=== PATIENT | male | born 1970 | race Caucasian/White ===

== ENCOUNTER 2024-02-15 10:19 | Outpatient (OUT) | payer OTHER, SELFPAY ==
[2024-02-15 12:06] LABS: Chol HDL Ratio 4.8; Cholesterol 163 mg/dL (<=200); HDL Cholesterol 34 mg/dL (40-60); Triglycerides 255 mg/dL (<=150)
== END 2024-02-15 10:20 | disposition home or self-care (01) ==
PROVIDERS: PCP Internal Medicine; Visit Provider Internal Medicine
DX: E78.3 Hyperchylomicronemia (principal)
CPT/HCPCS: 36415; 80061

== ENCOUNTER 2024-05-09 09:22 | Outpatient (OUT) | payer OTHER, SELFPAY ==
--- NOTE | 2024-05-09 09:34 | CA_ITS ---
Patient Name: ELISHA GIFFORD MR#: [id number] : 1970 Exam Date: 05/09/2024 Ordering Doctor: DR LADONNA HURTADO ECHOCARDIOGRAM REPORT PROCEDURE: CA ECHO DOPPLER COMPLETE INDICATIONS: [place] COMPARISON: None. DESCRIPTION: COMPLETE ECHOCARDIOGRAM Real-time transthoracic echocardiography with 2D, M-mode, spectral and color flow Doppler performed. QUALITY: Technical quality was good. LEFT VENTRICLE: Normal chamber size. Mild concentric hypertrophy. Global left ventricular systolic function is normal. LV EF: Estimated left ventricular ejection fraction is 55-60%. DIASTOLIC: Normal diastolic function. ATRIAL SEPTUM: LEFT ATRIUM: Normal chamber size. RIGHT ATRIUM: Normal chamber size. RIGHT VENTRICLE: Normal chamber size. Normal right ventricular systolic function. TRICUSPID VALVE: Normal mobility and thickness. No stenosis with trivial regurgitation. No evidence of pulmonary hypertension. RVSP 29 mmHg MITRAL VALVE: Normal mobility and thickness. No evidence of mitral valve stenosis. There is no mitral annular calcification. Trivial mitral regurgitation. AORTIC VALVE: Normal trileaflet appearance. No visible sclerosis. Normal leaflet mobility. No evidence of aortic valve stenosis. No aortic regurgitation. AORTIC ROOT: Normal diameter and appearance, measuring 3.3 cm. The ascending aorta is normal in size measuring 2.8 cm. PULMONIC VALVE: Normal thickness and mobility. No stenosis. Trivial regurgitation. PERICARDIUM: No evidence of pericardial effusion. IVC: Collapses with inspirations. Normal size. PLEURA: CONCLUSION: 1. Mild concentric left ventricular hypertrophy with normal systolic function. Estimated LVEF is 55 to 60%. 2. Normal right ventricular size and systolic function. 3. Normal diastolic function. 4. No significant valvular dysfunction. 5. Normal right-sided pressures. Adult Echocardiography Procedure Report Left Ventricle LVEDD (3.7 - 5.6 cm): 4.10 cm LVESD (2.2 - 4.0 cm): 2.67 cm LVIVS thickness (0.6 - 1.2 cm): 1.42 cm LVPW thickness (0.5 - 1.0 cm): 1.15 cm e': 0.13 m/s E - e': 6.33 LVOT Max Gradient: 6.03 mm[Hg] LVOT Area (cm2): 1.23 m/s Peak Velocity (LVOT): 1.23 m/s Mean Velocity (LVOT): 0.89 m/s LVOT Diameter 2.06 cm Left Ventricular Ejection Fraction: 55-60 % Left Atrium LA Volume Index (2D A2C): 25.65 ml/m2 Left Atrium Systolic Dimension: 4.22 cm Mitral Valve MV E to A Ratio: 1.04, 0.96 Mitral Valve A-Wave Peak Velocity: 0.81 m/s Mitral Valve E-Wave Peak Velocity: 0.81 m/s Right Ventricle RV Internal Diastolic Dimension: 3.38 cm Aorta AO Root Diam: 3.29 cm Ascending Ao Diam: 2.76 cm Aortic Valve AoV Area (Peak Primo): 2.53 cm2, 2.43 cm2 AoV Area (VTI): 2.44 cm2, 2.40 cm2 Peak Velocity(Antegrade Flow): 1.68 m/s, 1.54 m/s Peak Gradient(Antegrade Flow): 11.32 mm[Hg], 9.55 mm[Hg] Mean Velocity(Antegrade Flow): 1.09 m/s, 1.03 m/s Mean Gradient(Antegrade Flow): 5.54 mm[Hg], 4.90 mm[Hg] Velocity Time Integral: 33.12 cm, 32.13 cm Tricuspid Valve Peak Velocity (Regurgitant Flow): 2.43 m/s, 2.54 m/s, 2.40 m/s Pulmonic Valve Mean Gradient: 3.26 mm[Hg], 2.95 mm[Hg] Mean Velocity: 0.83 m/s, 0.80 m/s Peak Velocity: 1.27 m/s, 1.16 m/s Peak Gradient: 5.39 mm[Hg], 7.16 mm[Hg], 5.69 mm[Hg] Right Atrium Right Atrium Systolic Pressure: 43.39 ml, 43.39 ml Dictated by: Maxim Gabriel M.D. on 05/09/2024 at 17:39 Approved by: Maxim Gabriel M.D. on 05/09/2024 at 17:41
--- OUTSIDE RECORDS SUMMARY | 2024-05-09 09:38 | XMS_ITS | CCD ---
Author Organization [place] [employer] [facility] Care Team Providers Care Business Development Representative Name Role Phone PETERSON CROOK Attending Unavailable PETERSON CROOK Consulting PETERSON Nelson Primary Care Unavailable PETERSON CROOK Admitting Unavailable DON NOLAND V Consulting Unavailable LADONNA PEDRO Attending Unavailable LADONNA PEDRO Admitting Unavailable Don Momin Unavailable LADONNA PEDRO Consulting Unavailable Peterson Crook MD Primary Care Provider [phone] PETERSON CROOK Attending Unavailable PETERSON CROOK Attending Unavailable LADONNA PEDRO Attending Unavailable LADONNA PEDRO Attending Unavailable Allergies Allergy Classification Reported Allergen(s) Allergy Type Date of Onset Reaction(s) Facility (1 source) Penicillin Drug Allergy [facility] Repository (1 source) Vancomycin Drug Allergy [facility] Repository (3 sources) Lisinopril Allergy to substance 09-10-2023 Cough [facility] Healthcare (3 sources) Penicillin G Drug Allergy 09-10-2023 Unknown [facility] Healthcare (3 sources) Vancomycin Drug Allergy 09-10-2023 Unknown [facility] Healthcare Medications Current Medications Medication Drug Class(es) Dates Sig (Normalized) Sig (Original) amLODIPine 10 mg / olmesartan medoxomil 40 mg oral tablet (3 sources) Dihydropyridine Calcium Channel Itz, Angiotensin 2 Receptor Itz Start: 3 take 1 tablet by mouth in the morning amLODIPine-olmesart an (Marily) 10-40 MG tablet Indications: Benign essential hypertension (CMS/HCC) Take 1 tablet by mouth in the morning. 90 tablet 3 04/08/2023 Active 24 hr buPROPion hydrochloride 300 mg extended release oral tablet (3 sources) Aminoketone Start: 3 take 1 tablet by mouth every twenty-four hours in the morning buPROPion XL (Wellbutrin XL) 300 MG 24 hr tablet Indications: Moderate major depression (CMS/HCC) Take 1 tablet (300 mg) by mouth in the morning. 90 tablet 2 04/08/2023 Active FLUoxetine 10 mg oral capsule (3 sources) Serotonin Reuptake Inhibitor Start: 3 take 1 capsule by mouth in the morning FLUoxetine (PROzac) 10 MG capsule Indications: Moderate major depression (CMS/HCC) Take 1 capsule (10 mg) by mouth in the morning. 90 capsule 3 04/08/2023 Active ibuprofen 800 mg oral tablet (3 sources) Nonsteroidal Anti-inflammatory Drug Start: 4 take 1 tablet by mouth three times daily as needed for pain ibuprofen 800 MG tablet Indications: Cervical spondylosis without myelopathy TAKE 1 TABLET BY MOUTH 3 TIMES A DAY NEEDED FOR MODERATE PAIN 90 tablet 3 08/10/2023 Active Syringe/Needle, Disp, (B-D 3CC LUER-CARMEN SYR 22GX1 ) 22G X 1 3 ML misc (3 sources) Start: 3 Syringe/Needle, Disp, (B-D 3CC LUER-CARMEN SYR 22GX1 ) 22G X 1 3 ML misc Indications: Testicular hypofunction Inject subcutaneous every 14 days. 2 each 5 04/08/2023 Active tadalafil 5 mg oral tablet (2 sources) Phosphodiesterase 5 Inhibitor Start: 4 End: 4 take 1 tablet by mouth in the morning tadalafil (Cialis) 5 MG tablet Indications: Benign prostatic hyperplasia with nocturia Take 1 tablet (5 mg) by mouth in the morning. 10 tablet 0 09/14/2023 10/14/2023 Active 1 ml testosterone cypionate 200 mg/ml injection (3 sources) Androgen Start: 3 inject 0.5 mL by intramuscular injection every other week testosterone cypionate (Depo-Testosterone) 200 MG/ML injection Indications: Testicular hypofunction INJECT 1/2 ML INTRAMUSCULARLY EVERY 2 WEEKS 1 mL 2 06/15/2023 Active Problems Problem Classification Problem Date Documented Date Episodic/Chronic Abdominal pain (4 sources) Right upper quadrant pain; Translations: [RIGHT UPPER QUADRANT PAIN] Onset: 06-04-2020 Episodic Diabetes mellitus without complication (5 sources) Impaired glucose tolerance; Translations: [Impaired glucose tolerance (oral)] Onset: 09-10-2023 09-10-2023 Episodic Disorders of lipid metabolism (5 sources) Hypertriglyceridemia; 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] Onset: 09-10-2023 09-10-2023 Chronic Esophageal disorders (5 sources) Gastroesophageal reflux disease; Translations: [Gastro-esophageal reflux disease without esophagitis] Onset: 09-10-2023 09-10-2023 Chronic Essential hypertension (5 sources) Benign essential hypertension; Translations: [Essential (primary) hypertension] Onset: 09-10-2023 09-10-2023 Chronic Gout and other crystal arthropathies (5 sources) Gout; Translations: [Gout, unspecified] Onset: 09-10-2023 09-10-2023 Chronic Hyperplasia of prostate (5 sources) Benign prostatic hypertrophy without outflow obstruction; Translations: [Benign prostatic hyperplasia without lower urinary tract symptoms] Onset: 09-10-2023 09-10-2023 Chronic Mood disorders (3 sources) Moderate major depression, single episode; Translations: [Major depressive disorder, single episode, moderate] Onset: 09-10-2023 09-10-2023 Chronic Other and unspecified benign neoplasm (3 sources) Benign neoplasm of colon; Translations: [Benign neoplasm of colon, unspecified] Onset: 09-10-2023 09-10-2023 Episodic Other endocrine disorders (5 sources) Testicular hypofunction; Translations: [Testicular hypofunction] Onset: 09-10-2023 09-10-2023 Chronic Other liver diseases (5 sources) Steatosis of liver; Translations: [Fatty (change of) liver, not elsewhere classified] Onset: 09-10-2023 09-10-2023 Chronic Other screening for suspected conditions (not mental disorders or infectious disease) (10 sources) Abnormal findings on diagnostic imaging of liver and biliary tract; Translations: [Decreased testosterone level ] Onset: 06-08-2020 09-10-2023 Episodic Spondylosis; intervertebral disc disorders; other back problems (5 sources) Cervical spondylosis without myelopathy; Translations: [Spondylosis without myelopathy or radiculopathy, cervical region] Onset: 09-10-2023 09-10-2023 Chronic Results Test Name Value Interpretation Reference Range Facility Q - CBC W/DIFF AND PLTon BASOABS 53 cells/uL Normal 0-200 [facility] Specialist Comment on above: Order Comment: [facility] performed at: [facility] [employer] [facility], [address] [facility], [address] [place] [address], [address] [place] [address], Research Professor Of Biostatistics: Mihir Alvarez MD [facility] Collection Date/Time: [facility] Results Received Date/Time: [facility] Reported Date/Time: Performed By: #### 3 6127, 5363X, 873, 81396W, 42A, 39910B, 968T #### [facility] Default [address] [place] [address] Basophils/100 WBC (Bld) 0.8 % Normal [facility] Specialist Comment on above: Order Comment: [facility] performed at: [facility] [employer] [facility], [address] [place] [address], [address] [place] [address], [address] [place] [address], Research Professor Of Biostatistics: Mihir Alvarez MD [facility] Date/Time: [facility] Results Received Date/Time: [facility] Reported Date/Time: Performed By: #### 3 6127, 5363X, 873, 17203F, 42A, 00994Z, 968T #### [facility] [address] [place] [address] EOSABS 284 cells/uL Normal 15-500 [facility] Specialist Comment on above: Order Comment: [facility] performed at: [facility] [employer] [facility], [address] [facility], [address] [place] [address], [address] [place] [address], Research Professor Of Biostatistics: Mihir Alvarez MD [facility] Date/Time: [facility] Results Received Date/Time: [facility] Reported Date/Time: Performed By: #### 3 6127, 5363X, 873, 49952O, 42A, 62717K, 968T #### [facility] [address] [place] [address] Eosinophils/100 WBC (Bld) 4.3 % Normal [facility] Specialist Comment on above: Order Comment: [facility] performed at: [facility], [employer] [facility], [address] [place] [address], [address] [place] [address], [address] [place] [address], Research Professor Of Biostatistics: Mihir Alvarez MD [facility] Date/Time: [facility] Results Received Date/Time: [facility] Reported Date/Time: Performed By: #### 3 6127, 5363X, 873, 21429P, 42A, 46011E, 968T #### [facility] [address] [place] [address] Erythrocyte distribution width (RBC) [Ratio] 13.3 % Normal 11.0-15.0 [facility] [employer] Comment on above: Order Comment: [facility] performed at: [facility], [employer] [facility], [address] [place] [address], [address] [place] [address], [address] [place] [address], Research Professor Of Biostatistics: Mihir Alvarez MD [facility] Date/Time: [facility] Results Received Date/Time: [facility] Reported Date/Time: Performed By: #### 3 6127, 5363X, 873, 39096W, 42A, 67602E, 968T #### [facility] [address] [place] [address] Hematocrit (Bld) [Volume fraction] 44.7 % Normal 38.5-50.0 [facility] [employer] Comment on above: Order Comment: [facility] performed at: [facility], [employer] [facility], [address] [place] [address], [address] [place] [address], [address] [place] [address], Research Professor Of Biostatistics: Mihir Alvarez MD [facility] Date/Time: [facility] Results Received Date/Time: [facility] Reported Date/Time: Performed By: #### 3 6127, 5363X, 873, 01238U, 42A, 34025G, 968T #### [facility] [address] [place] [address] Hemoglobin (Bld) [Mass/Vol] 14.8 g/dL Normal 13.2-17.1 [facility] [employer] Comment on above: Order Comment: [facility] performed at: [facility] [employer] [facility], 5 [facility], [address] [place] [address], [address] [place] [address], Research Professor Of Biostatistics: Mihir Alvarez MD [facility] Date/Time: [facility] Results Received Date/Time: [facility] Reported Date/Time: Performed By: #### 3 6127, 5363X, 873, 56809F, 42A, 33074N, 968T #### [facility] [address] [place] [address] Lymphocytes (Bld) [#/Vol] 1.729 10*3/uL Normal 850-3900 [facility] [employer] Comment on above: Order Comment: [facility] performed at: [facility] [employer] [facility], [address] [place] [address], [address] [place] [address], [address] [place] [address], Research Professor Of Biostatistics: Mihir Alvarez MD [facility] Date/Time: [facility] Results Received Date/Time: [facility] Reported Date/Time: Performed By: #### 3 6127, 5363X, 873, 78503D, 42A, 73557O, 968T #### [facility] [address] [place] [address] Lymphocytes/100 WBC (Bld) 26.2 % Normal [facility] [employer] Comment on above: Order Comment: [facility] performed at: [employer] [facility], 5 [facility], [address] [place] [address], [address] [place] [address], Research Professor Of Biostatistics: Mihir Alvarez MD [facility] Date/Time: [facility] Results Received Date/Time: [facility] Reported Date/Time: Performed By: #### 3 6127, 5363X, 873, 88793O, 42A, 31194P, 968T #### [facility] [address] [place] [address] MCH (RBC) [Entitic mass] 27.8 pg Normal 27.0-33.0 [facility] [employer] Comment on above: Order Comment: [facility] performed at: [facility], [employer] [facility], [address] [facility], [address] [place] [address], [address] [place] [address], Research Professor Of Biostatistics: Mihir Alvarez MD [facility] Date/Time: [facility] Results Received Date/Time: [facility] Reported Date/Time: Performed By: #### 3 6127, 5363X, 873, 99445K, 42A, 64465N, 968T #### [facility] [address] [place] [address] MCHC (RBC) [Mass/Vol] 33.1 g/dL Normal 32.0-36.0 [facility] [employer] Comment on above: Order Comment: [facility] performed at: [facility], [employer] [facility], [address] [place] [address], [address] [place] [address], [address] [place] [address], Research Professor Of Biostatistics: Mihir Alvarez MD [facility] Date/Time: [facility] Results Received Date/Time: [facility] Reported Date/Time: Performed By: #### 3 6127, 5363X, 873, 00802E, 42A, 88795H, 968T #### [facility] [address] [place] [address] MCV (RBC) [Entitic vol] 83.9 fL Normal 80.0-100.0 [facility] [employer] Comment on above: Order Comment: [facility] performed at: [facility], [employer] [facility], 5 [facility], [address] [place] [address], [id number], Research Professor Of Biostatistics: Mihir Alvarez MD [facility] Date/Time: [facility] Results Received Date/Time: [facility] Reported Date/Time: Performed By: #### 3 6127, 5363X, 873, 32002S, 42A, 53671I, 968T #### [facility] [address] [place] [address] MONOABS 653 cells/uL Normal 200-950 [facility] Specialist Comment on above: Order Comment: [facility] performed at: [facility], [employer] [facility], [address] , [address] [place] [address], [address] [place] [address], Research Professor Of Biostatistics: Mihir Alvarez MD [facility] Date/Time: [facility] Results Received Date/Time: [facility] Reported Date/Time: Performed By: #### 3 6127, 5363X, 873, 23297Y, 42A, 60066K, 968T #### [facility] [address] [place] [address] Monocytes/100 WBC (Bld) 9.9 % Normal [facility] Specialist Comment on above: Order Comment: [facility] performed at: [facility] [employer] [facility], [address] [facility], [address] [place] [address], [address] [place] [address], Research Professor Of Biostatistics: Mihir Alvarez MD [facility] Date/Time: [facility] Results Received Date/Time: [facility] Reported Date/Time: Performed By: #### 3 6127, 5363X, 873, 20012U, 42A, 11567T, 968T #### [facility] [address] [place] [address] Neutrophils (Bld) [#/Vol] 3.881 10*3/uL Normal 4724-6983 [facility] Specialist Comment on above: Order Comment: [facility] performed at: [facility] [employer] [facility], [address] , [address] [place] [address], [address] [place] [address], Research Professor Of Biostatistics: Mihir Alvarez MD [facility] Date/Time: [facility] Results Received Date/Time: [facility] Reported Date/Time: Performed By: #### 3 6127, 5363X, 873, 24284V, 42A, 97543C, 968T #### [facility] [address] [place] [address] Neutrophils/100 WBC (Bld) 58.8 % Normal [facility] Specialist Comment on above: Order Comment: [facility] performed at: [facility] [employer] [facility], [address] , [address] [place] [address], [address] [place] [address], Research Professor Of Biostatistics: Mihir Alvarez MD [facility] Collection Date/Time: [facility] Results Received Date/Time: [facility] Reported Date/Time: Performed By: #### 3 6127, 5363X, 873, 76346Y, 42A, 10431K, 968T #### [facility] [address] [place] [address] Platelet mean volume (Bld) [Entitic vol] 9.5 fL Normal 7.5-12.5 [facility] [employer] Comment on above: Order Comment: [facility] performed at: [facility] [employer] [facility], [address] , [address] [place] [address], [address] [place] [address], Research Professor Of Biostatistics: Mihir Alvarez MD [facility] Collection Date/Time: [facility] Results Received Date/Time: [facility] Reported Date/Time: Performed By: #### 3 6127, 5363X, 873, 03602G, 42A, 45558T, 968T #### [facility] [address] [place] [address] Platelets (Bld) [#/Vol] 352 10*3/uL Normal 140-400 [facility] [employer] Sep[employer] Comment on above: Order Comment: [facility] performed at: [facility], [employer] [facility], [address] , [address] [place] [address], [address] [place] [address], Research Professor Of Biostatistics: Mihir Alvarez MD [facility] Collection Date/Time: [facility] Results Received Date/Time: [facility] Reported Date/Time: Performed By: #### 3 6127, 5363X, 873, 56678A, 42A, 37899G, 968T #### [facility] [address] [place] [address] RBC (Bld) [#/Vol] 5.33 10*6/uL Normal 4.20-5.80 Nickolas rosen [place] [employer] Comment on above: Order Comment: [facility] performed at: [facility], [employer] [facility], [address] [facility], [address] [place] [address], [address] [place] [address], Research Professor Of Biostatistics: Mihir Alvarez MD [facility] Collection Date/Time: [facility] Results Received Date/Time: [facility] Reported Date/Time: Performed By: #### 3 6127, 5363X, 873, 34560O, 42A, 80191E, 968T #### [facility] [address] [place] [address] WBC (Bld) [#/Vol] 6.6 10*3/uL Normal 3.8-10.8 Gia wick [place] [employer] Comment on above: Order Comment: [facility] performed at: [facility] [employer] [facility], [address] , [address] [place] [address], [address] [place] [address], Research Professor Of Biostatistics: Mihir Alvarez MD [facility] Date/Time: [facility] Results Received Date/Time: [facility] Reported Date/Time: Performed By: #### 3 6127, 5363X, 873, 15898K, 42A, 30818G, 968T #### [facility] [address] [place] [address] Q - COMPREHENSIVE METABOLIC PANEL W/EGFRon 07-12-2021 Albumin [Mass/Vol] 4.5 g/dL Normal 3.6-5.1 Gia wick [place] [employer] Comment on above: Order Comment: [facility] performed at: [facility] [employer] [facility], [address] [facility], [address] [place] [address], [address] [place] [address], Research Professor Of Biostatistics: Mihir Alvarez MD [facility] Collection Date/Time: [facility] Results Received Date/Time: [facility] Reported Date/Time: Performed By: #### 3 6127, 5363X, 873, 09655J, 42A, 29115L, 968T #### [facility] [address] [place] [address] Albumin/Globulin [Mass ratio] 1.7 {ratio} Normal 1.0-2.5 [facility] Specialist Comment on above: Order Comment: [facility] performed at: [facility] [employer] [facility], [address] [place] [address], [address] [place] [address], [address] [place] [address], Research Professor Of Biostatistics: Mihir Alvarez MD [facility] Collection Date/Time: [facility] Results Received Date/Time: [facility] Reported Date/Time: Performed By: #### 3 6127, 5363X, 873, 76548R, 42A, 36219J, 968T #### [facility] [address] [place] [address] ALP [Catalytic activity/Vol] 65 U/L Normal 35-144 [facility] Specialist Comment on above: Order Comment: [facility] performed at: [facility] [employer] [facility], [address] [place] [address], [address] [place] [address], [address] [place] [address], Research Professor Of Biostatistics: Mihir Alvarez MD [facility] Date/Time: [facility] Results Received Date/Time: [facility] Reported Date/Time: Performed By: #### 3 6127, 5363X, 873, 87993V, 42A, 50495Z, 968T #### [facility] [address] [place] [address] ALT [Catalytic activity/Vol] 20 U/L Normal 9-46 [facility] Specialist Comment on above: Order Comment: [facility] performed at: [facility] [employer] [facility], [address] [place] [address], [address] [place] [address], [address] [place] [address], Research Professor Of Biostatistics: Mihir Alvarez MD [facility] Collection Date/Time: [facility] Results Received Date/Time: [facility] Reported Date/Time: Performed By: #### 3 6127, 5363X, 873, 61939O, 42A, 37646R, 968T #### [facility] [address] [place] [address] AST [Catalytic activity/Vol] 16 U/L Normal 10-35 [facility] Comment on above: Order Comment: [facility] performed at: [facility] [employer] [facility], [address], [address] [place] [address], [address] [place] [address], Research Professor Of Biostatistics: Mihir Alvarez MD [facility] Collection Date/Time: [facility] Results Received Date/Time: [facility] Reported Date/Time: Performed By: #### 3 6127, 5363X, 873, 86149J, 42A, 36587T, 968T #### [facility] [address] [place] [address] Bilirubin [Mass/Vol] 0.7 mg/dL Normal 0.2-1.2 [facility] Comment on above: Order Comment: [facility] performed at: [facility] [employer] [facility], [address] [facility], [address] [place] [address], [address] [place] [address], Research Professor Of Biostatistics: Mihir Alvarez MD [facility] Collection Date/Time: [facility] Results Received Date/Time: [facility] Reported Date/Time: Performed By: #### 3 6127, 5363X, 873, 77200T, 42A, 48695Q, 968T #### [facility] [address] [place] [address] BUN/CREA 18 NOT APPLICABLE Normal 6-22 [facility] Comment on above: Order Comment: [facility] performed at: [facility], [employer] [facility], [address] , [address] [place] [address], [address] [place] [address], Research Professor Of Biostatistics: Mihir Alvarez MD [facility] Collection Date/Time: [facility] Results Received Date/Time: [facility] Reported Date/Time: Performed By: #### 3 6127, 5363X, 873, 20018U, 42A, 47728E, 968T #### [facility] [address] [place] [address] Calcium [Mass/Vol] 9.1 mg/dL Normal 8.6-10.3 [facility] Comment on above: Order Comment: [facility] performed at: [facility], [employer] [facility], [address] [facility], [address] [place] [address], [address] [place] [address], Research Professor Of Biostatistics: Mihir Alvarez MD [facility] Date/Time: [facility] Results Received Date/Time: [facility] Reported Date/Time: Performed By: #### 3 6127, 5363X, 873, 45979D, 42A, 07524S, 968T #### [facility] [address] [place] [address] Chloride [Moles/Vol] 104 mmol/L Normal 98-110 [facility] Comment on above: Order Comment: [facility] performed at: [facility] [employer] [facility], [address] [place] [address], [address] [place] [address], [address] [place] [address], Research Professor Of Biostatistics: Mihir Alvarez MD [facility] Date/Time: [facility] Results Received Date/Time: [facility] Reported Date/Time: Performed By: #### 3 6127, 5363X, 873, 98417N, 42A, 03138O, 968T #### [facility] [address] [place] [address] CO2 [Moles/Vol] 28 mmol/L Normal 20-32 [facility] Specialist Comment on above: Order Comment: [facility] Testing performed at: [facility] [employer] [facility], [address] , [address] [place] [address], [address] [place] [address], Research Professor Of Biostatistics: Mihir Alvarez MD [facility] Collection Date/Time: [facility] Results Received Date/Time: [facility] Reported Date/Time: Performed By: #### 3 6127, 5363X, 873, 67392U, 42A, 42319P, 968T #### [facility] [address] [place] [address] Creatinine [Mass/Vol] 1.07 mg/dL Normal 0.70-1.33 [facility] [employer]ator Comment on above: Order Comment: [facility] Testing performed at: [employer] [employer] [facility], [address] [place] [address], [address] [place] [address], [address] [place] [address], Research Professor Of Biostatistics: Mihir Alvarez MD [facility] Collection Date/Time: [facility] Results Received Date/Time: [facility] Reported Date/Time: Result Comment: For patients >49 years of age, the reference limit for Creatinine is approximately 13% higher for people identified as -Trinidadian. Performed By: #### 3 6127, 5363X, 873, 19222Q, 42A, 52866N, 968T #### [facility] [address] [place] [address] eGFRAA 88 mL/min/1.73m2 Normal > OR = 60 [facility] [employer] Comment on above: Order Comment: [facility] Testing performed at: [facility] [employer] [facility], [address] [place] [address], [address] [place] [address], [address] [place] [address], Research Professor Of Biostatistics: Mihir Alvarez MD [facility] Collection Date/Time: [facility] Results Received Date/Time: [facility] Reported Date/Time: Performed By: #### 3 6127, 5363X, 873, 08353N, 42A, 34440Z, 968T #### [facility] [address] [place] [address] eGFRNAA 73 mL/min/1.73m2 Normal > OR = 60 [facility] [employer] Comment on above: Order Comment: [facility] performed at: [facility] [employer] [facility], [address] [place] [address], [address] [place] [address], [address] [place] [address], Research Professor Of Biostatistics: Mihir Alvarez MD [facility] Collection Date/Time: [facility] Results Received Date/Time: [facility] Reported Date/Time: Performed By: #### 3 6127, 5363X, 873, 33186Y, 42A, 10469X, 968T #### [facility] [address] [place] [address] Globulin (S) [Mass/Vol] 2.6 g/dL Normal 1.9-3.7 [facility] Specialist Comment on above: Order Comment: [facility] Testing performed at: [employer] [facility], [address] [place] [address], [address] [place] [address], [phone], Research Professor Of Biostatistics: Mihir Alvarez MD [facility] Collection Date/Time: [facility] Results Received Date/Time: [facility] Reported Date/Time: Performed By: #### 3 6127, 5363X, 873, 91292P, 42A, 60644B, 968T #### [facility] [address] [place] [address] Glucose [Mass/Vol] 115 mg/dL High 65-99 [facility] Comment on above: Order Comment: [facility] performed at: [employer] [facility], [address] [place] [address], [address] [place] [address], [phone], Research Professor Of Biostatistics: Mihir Alvarez MD [facility] Collection Date/Time: [facility] Results Received Date/Time: [facility] Reported Date/Time: Result Comment: Fasting reference interval For someone without known diabetes, a glucose value between 100 and 125 mg/dL is consistent with prediabetes and should be confirmed with a follow-up test. Performed By: #### 3 6127, 5363X, 873, 50186G, 42A, 34362Q, 968T #### [facility] [address] [place] [address] Potassium [Moles/Vol] 4.2 mmol/L Normal 3.5-5.3 [facility] [employer] Comment on above: Order Comment: [facility] Testing performed at: [employer] [facility], [address] [facility], [address] [place] [address], [address] [place] [address], Research Professor Of Biostatistics: Mihir Alvarez MD [facility] Collection Date/Time: [facility] Results Received Date/Time: [facility] Reported Date/Time: Performed By: #### 3 6127, 5363X, 873, 90006M, 42A, 78207Q, 968T #### [facility] [address] [place] [address] Protein [Mass/Vol] 7.1 g/dL Normal 6.1-8.1 [facility] [place] [employer] Comment on above: Order Comment: [facility] Testing performed at: [employer] [facility], [address] [place] [address], [address] [place] [address], [address] [place] [address], Research Professor Of Biostatistics: Mihir Alvarez MD [facility] Collection Date/Time: [facility] Results Received Date/Time: [facility] Reported Date/Time: Performed By: #### 3 6127, 5363X, 873, 97116P, 42A, 97409L, 968T #### [facility] [address] [place] [address] Sodium [Moles/Vol] 138 mmol/L Normal 135-146 Gia w[facility] [place] [employer] Comment on above: Order Comment: [facility] performed at: [employer] [facility], [address] [place] [address], [address] [place] [address], [address] [place] [address], Research Professor Of Biostatistics: Mihir Alvarez MD [facility] Collection Date/Time: [facility] Results Received Date/Time: [facility] Reported Date/Time: Performed By: #### 3 6127, 5363X, 873, 32160H, 42A, 23807X, 968T #### [facility] [address] [place] [address] Urea nitrogen [Mass/Vol] 19 mg/dL Normal 7-25 [facility] [employer] Comment on above: Order Comment: [facility] performed at: [employer] [employer] [facility], [address] , [address] [place] [address], [address] [place] [address], Research Professor Of Biostatistics: Mihir Alvarez MD [facility] Collection Date/Time: [facility] Results Received Date/Time: [facility] Reported Date/Time: Performed By: #### 3 6127, 5363X, 873, 72675D, 42A, 28282X, 968T #### [facility] [address] [place] [address] Q - HEMOGLOBIN A1C WITH EAGo n 07-12-2021 eAG (mmol/L) 6.8 mmol/L Normal [facility] [employer] Comment on above: Order Comment: [facility] Testing performed at: [employer] [employer] [facility], [address] [facility], [address] [place] [address], [address] [place] [address], Research Professor Of Biostatistics: Mihir Alvarez MD [facility] Collection Date/Time: [facility] Results Received Date/Time: [facility] Reported Date/Time: Performed By: #### 3 6127, 5363X, 873, 23460Z, 42A, 00036Y, 968T #### [facility] [address] [place] [address] HEMOGLOBIN A1c 5.9 % of total Hgb High <5.7 No rthern [place] [employer]ator Comment on above: Order Comment: [facility] performed at: [employer] [employer] [facility], [address] [facility], [address] [place] [address], [address] [place] [address], Research Professor Of Biostatistics: Mihir Alvarez MD [facility] Collection Date/Time: [facility] Results Received Date/Time: [facility] Reported Date/Time: Result Comment: For someone without known diabetes, a hemoglobin A1c value between 5.7% and 6.4% is consistent with prediabetes and should be confirmed with a follow-up test. For someone with known diabetes, a value <7% indicates that their diabetes is well controlled. A1c targets should be individualized based on duration of diabetes, age, comorbid conditions, and other considerations. This assay result is consistent with an increased risk of diabetes. Currently, no consensus exists regarding use of hemoglobin A1c for diagnosis of diabetes for children. Performed By: #### 3 6127, 5363X, 873, 29704Z, 42A, 30801B, 968T #### [facility] [address] [place] [address] Magnesium [Mass/Vol] 123 mg/dL Normal [facility] Comment on above: Order Comment: [facility] Testing performed at: [employer] [facility], [address] [place] [address], [address] [place] [address], [address] [place] [address], Research Professor Of Biostatistics: Mihir Alvarez MD [facility] Collection Date/Time: [facility] Results Received Date/Time: [facility] Reported Date/Time: Performed By: #### 3 6127, 5363X, 873, 93515P, 42A, 03179G, 968T #### [facility] [address] [place] [address] Q - Lipid Panelon 07-12-2021 Cholesterol [Mass/Vol] 199 mg/dL Normal <200 [facility] Specialist Comment on above: Order Comment: [facility] Testing performed at: [employer] [employer] [facility], [address] [place] [address], [address] [place] [address], [address] [place] [address], Research Professor Of Biostatistics: Mihir Alvarez MD [facility] Collection Date/Time: [facility] Results Received Date/Time: [facility] Reported Date/Time: Performed By: #### 3 6127, 5363X, 873, 39064K, 42A, 48316S, 968T #### [facility] [address] [place] [address] Cholesterol in HDL [Mass/Vol] 44 mg/dL Normal > OR = 40 [facility] [employer] Comment on above: Order Comment: [facility] Testing performed at: [employer] [employer] [facility], [address] [place] [address], [address] [place] [address], [address] [place] [address], Research Professor Of Biostatistics: Mihir Alvarez MD [facility] Collection Date/Time: [facility] Results Received Date/Time: [facility] Reported Date/Time: Performed By: #### 3 6127, 5363X, 873, 43466Q, 42A, 42259R, 968T #### [facility] [address] [place] [address] Cholesterol in LDL [Mass/Vol] 125 mg/dL High [place] [employer]ator Comment on above: Order Comment: [facility] Testing performed at: [employer] [facility], [address] [place] [address], [address] [place] [address], [phone], Research Professor Of Biostatistics: Mihir Alvarez MD [facility] Collection Date/Time: [facility] Results Received Date/Time: [facility] Reported Date/Time: Result Comment: Refe rence range: <100 Desirable range <100 mg/dL for primary prevention; <70 mg/dL for patients with CHD or diabetic patients with > or = 2 CHD risk factors. LDL-C is now calculated using the Vinay-Chuck calculation, which is a validated novel method providing better accuracy than the Friedewald equation in the estimation of LDL-C. Vinay SS et al. SHERYL. 2013;310(19): 7924-1887 (http://education.zeenworld.Zopa/faq/CQO927) Performed By: #### 3 6127, 5363X, 873, 79266T, 42A, 76712C, 968T #### [facility] [address] [place] [address] Cholesterol.total/Ch olesterol in HDL [Mass ratio] 4.5 {ratio} Normal <5.0 [facility] [employer]ator Comment on above: Order Comment: [facility] Testing performed at: [employer] [employer] [facility], [address] [facility], [address] [place] [address], [phone], Research Professor Of Biostatistics: Mihir Alvarez MD [facility] Collection Date/Time: [facility] Results Received Date/Time: [facility] Reported Date/Time: Performed By: #### 3 6127, 5363X, 873, 85079R, 42A, 19546V, 968T #### [facility] [address] [place] [address] NON HDL CHOLESTEROL 155 mg/dL (calc) High <130 [facility] [employer]ator Comment on above: Order Comment: [facility] Testing performed at: [employer] [facility], [address] , [address] [place] [address], [address], Research Professor Of Biostatistics: Mihir Alvarez MD [facility] Collection Date/Time: [facility] Results Received Date/Time: [facility] Reported Date/Time: Result Comment: For patients with diabetes plus 1 major ASCVD risk factor, treating to a non-HDL-C goal of <100 mg/dL (LDL-C of <70 mg/dL) is considered a therapeutic option. Performed By: #### 3 6127, 5363X, 873, 78604Z, 42A, 08444U, 968T #### [facility] [address] [place] [address] Triglyceride [Mass/Vol] 182 mg/dL High <150 [facility] [employer] Comment on above: Order Comment: [facility] Testing performed at: [employer] [facility], [address] [facility], [address] [place] [address], [phone], Research Professor Of Biostatistics: Mihir Alvarez MD [facility] Collection Date/Time: [facility] Results Received Date/Time: [facility] Reported Date/Time: Performed By: #### 3 6127, 5363X, 873, 34590P, 42A, 58987W, 968T #### [facility] [address] [place] [address] Q - PSA TOTALon 07-12-2021 PSA, TOTAL 1.22 ng/mL Normal < OR = 4.00 [facility] [employer] Comment on above: Order Comment: [facility] Testing performed at: [employer] [facility], [address] , [address] [place] [address], [address], Research Professor Of Biostatistics: Mihir Alvarez MD [facility] Collection Date/Time: [facility] Results Received Date/Time: [facility] Reported Date/Time: Result Comment: The total PSA value from this assay system is standardized against the WHO standard. The test result will be approximately 20% lower when compared to the equimolar-standardized total PSA (Polo [place]). Comparison of serial PSA results should be interpreted with this fact in mind. This test was performed using the Siemens chemiluminescent method. Values obtained from different assay methods cannot be used interchangeably. PSA levels, regardless of value, should not be interpreted as absolute evidence of the presence or absence of disease. Performed By: #### 3 6127, 5363X, 873, 74187M, 42A, 20309J, 968T #### [facility] [address] [place] [address] Q - TESTOSTERONE,TOTAL,MALES (ADULT),IMMUNOASAYon 07-12-2021 TESTOSTERONE, TOTAL, MALES (ADULT), [place] 127 ng/dL Low 250-827 [facility] Comment on above: Order Comment: [facility] Testing performed at: [employer] [facility], [address] [place] [address], [address] [place] [address], [phone], Research Professor Of Biostatistics: Mihir Alvarez MD [facility] Collection Date/Time: [facility] Results Received Date/Time: [facility] Reported Date/Time: Result Comment: In h ypogonadal males, Testosterone, Total, LC/MS/MS, is the recommended assay due to the diminished accuracy of immunoassay at levels below 250 ng/dL. This test code (33579) must be collected in a red-top tube with no gel. Performed By: #### 3 6127, 5363X, 873, 49044M, 42A, 82459U, 968T #### [facility] [address] [place] [address] Q - TSH WITH REFLEX TO FREE T4on 07-12-2021 TSH W/REFLEX TO FT4 1.46 mIU/L Normal 0.40-4.50 [facility] Comment on above: Order Comment: [facility] Testing performed at: [employer] [facility], [address], [address] [facility], [place], [address], Research Professor Of Biostatistics: Mihir Alvarez MD [facility] Collection Date/Time: [id number] [facility] Results Received Date/Time: [facility] Reported Date/Time: [id number] Performed By: #### 3 6127, 5363X, 873, 81153I, 42A, 90441S, 968T #### [facility] [address] [place] [address] Consenton 12-07-2020 Consent [id number]# 1.00CD:127 Normal [facility] In office Testingon 12-08-19 21 In office Testing [id number]#1 .00CD:127 Normal [facility] Registrationon 12-07-2020 Registration [id number]# 1.00CD:127 Normal [facility] NM HEPATOBILIARY SCAN W EFon 06-04-2020 NM HEPATOBILIARY SCAN W EF EXAMINATION: NM HEPATOBILIARY SCAN W EF HISTORY: Right upper quadrant pain , abnormal gallbladder ultrasound COMPARISON: 05/19/2020 TECHNIQUE: Radionuclide hepatobiliary imaging was performed after intravenous injection of 5.3 mCi Tc-99m mebrofenin with sequential acquisitions every 1 minute for one hour. Hepatobiliary imaging with gallbladder ejection fraction analysis was then performed with sequential imaging every 1 minute for 60 minutes simultaneously during infusion of 2 mcg cholecystokinin over 60 minutes. FINDINGS: LIVER: Normal, prompt and uniform radiotracer uptake and clearing. BILIARY DUCTS: Normal radioisotopic biliary excretion. GALLBLADDER: Normal with no evidence of cystic duct obstruction. INTESTINE: Normal with no evidence of common biliary ductal obstruction. EJECTION FRACTION: 86 % within 60 minutes. (Normal EF > 38%). OTHER: Negative. IMPRESSION: Minimal hepatobiliary scan and pharmacologic gallbladder ejection fraction Electronically authenticated by: DON NOLAND Date: 2020-06-04 10:35 Normal [facility] US SINGLE QUAD RT UPPERon US SINGLE QUAD RT UPPER Ultrasound of the right upper quadrant Clinical: Right upper quadrant pain for 4 days which is increasing. The pancreas was obscured due to overlying bowel gas. Scanning of the liver demonstrates mild increased echogenicity of liver consistent with fatty infiltration of the liver versus diffuse hepatocellular disease. Grossly no masses are noted. Color-flow is noted in the portal and hepatic veins. Scanning of the gallbladder demonstrates no stones in the gallbladder. There is a small amount of sludge. Gallbladder wall measures 3 mm. Patient did have some pain upon scanning over the gallbladder. No fluid is noted around the gallbladder. Common bile duct is normal measuring 4 mm. Right kidney measures 11.6 x 5.3 x 6 cm. No solid renal cortical masses or hydronephrosis is noted. Color-flow is noted. IMPRESSION: 1. The pancreas was obscured due to overlying bowel gas. 2. Increased echogenicity of liver consistent with fatty infiltration of the liver versus diffuse hepatocellular disease. 3. No gallstones were noted. There is a very small amount of sludge within the gallbladder. Gallbladder wall measured 3 mm which is slightly thickened. Patient did have slight pain upon scanning over the gallbladder. No fluid is noted around the gallbladder. 4. Normal common bile duct. 5. Normal-appearing right kidney. Electronically authenticated by: DON MOMIN Date: 2020-05-19 13:38 Normal [facility] Vital Signs Date Time Vital Sign Value Performing Clinician Faci lity 09-14-2023 09:32-0500 Body height 172.7 cm Peterson Crook MD Work Phone: [facility] 09-14-2023 09:32-0500 Body mass index (BMI) [Ratio] 36.34 kg/m2 Peterson Crook MD Work Phone: [facility] 09-14-2023 09:32-0500 Body weight 108.41 kg Peterson Crook MD Work Phone: [facility] 09-14-2023 09:32-0500 Diastolic blood pressure 80 mm[Hg] Peterson Crook MD Work Phone: [facility] 09-14-2023 09:32-0500 Heart rate 87 /min Peterson Crook MD Work Phone: [facility] 09-14-2023 09:32-0500 SaO2% (BldA) [Mass fraction] 95 % Peterson Crook MD Work Phone: [facility] 09-14-2023 09:32-0500 Systolic blood pressure 126 mm[Hg] Peterson Crook MD Work Phone: [facility] Encounters Encounter Date Encounter Type Care Provider Facility Start: 04-25-2024 End: 04-25-2024 ambulatory LADONNA PEDRO Not Available Start: 03-28-2024 End: 03-28-2024 ambulatory LADONNA Wilkerson [facility] Not Available Start: 10-19-2023 End: 10-19-2023 ambulatory PETERSON CROOK Not Available Start: 09-14-2023 Bamboo flowsheet Peterson rider MD Work Phone: [facility] Start: 09-14-2023 Bamboo flowsheet Peterson rider MD Work Phone: [facility] Start: 09-14-2023 End: 09-14-2023 ambulatory PETERSON CROOK Not Available Start: 09-14-2023 End: 09-14-2023 Patient encounter status Peterson Crook MD Work Phone: [facility] Healthcare Work Phone: Start: 09-14-2023 End: 09-14-2023 Periodic preventive med est patient 40-64yrs Peterson Crook MD Work Phone: [facility] Comment on above: Routine general medi eugenie examination at a health care facility (Primary Dx); Encounter for screening for malignant neoplasm of colon; Benign essential hypertension (CMS/HCC); Gastroesophageal reflux disease without esophagitis; Steatosis of liver; Benign prostatic hyperplasia with nocturia; Spondylosis of cervical region without myelopathy or radiculopathy; IGT (impaired glucose tolerance); Testicular hypofunction; Chronic gout without tophus, unspecified cause, unspecified site; Hyperchylomicronemia (CMS/HCC); Low testosterone; Prostate cancer screening Start: 06-04-2020 End: 06-05-2020 Patient encounter procedure PETERSON CROOK Facility:[facility] Start: 05-19-2020 End: 05-20-2020 Patient encounter procedure LADONNA Wilkerson MAYELA Facility:[facility] Procedures Date Procedure Procedure Detail Performing Clinician Start: 09-26-2013 Colonoscopy Peterson galindo MD Work Phone: Plan of Treatment Date Care Activity Detail Author Start: 09-26-2023 Screening for malignant neoplasm of colon [facility] Start: 09-14-2023 End: 09-14-2024 Comprehensive metabolic 2000 panel - Serum or Plasma Comprehensive metabolic panel Lab Routine Routine general medical examination at a health care facility Benign essential hypertension (CMS/HCC) Steatosis of liver Expected: 09/14/2023 (Approximate), Expires: 09/14/2024 [facility] Comment on above: Expected: 09/14/2023 (Approximate), Expi res: 09/14/2024 Start: 09-14-2023 End: 09-14-2024 Hemoglobin A1c measurement Hemoglobin A1c Lab Routine Routine general medical examination at a [facility] care facility IGT (impaired glucose tolerance) Expected: 09/14/2023 (Approximate), Expires: 09/14/2024 [facility] Comment on above: Expected: 09/14/2023 (Approximate), Expi res: 09/14/2024 Start: 09-14-2023 End: 09-14-2024 Lipid 1996 panel - Serum or Plasma Lipid panel Lab Routine Routine general medical examination at a health care facility Hyperchylomicronemia (CMS/HCC) Expected: 09/14/2023 (Approximate), Expires: 09/14/2024 [facility] Comment on above: Expected: 09/14/2023 (Approximate), Expi res: 09/14/2024 Start: 09-14-2023 End: 09-14-2024 Testosterone [Mass/volume] in Serum or Plasma Testosterone Lab Routine Routine general medical examination at a [facility] care facility Testicular hypofunction Low testosterone Expected: 09/14/2023 (Approximate), Expires: 09/14/2024 [facility] Comment on above: Expected: 09/14/2023 (Approximate), Expi res: 09/14/2024 Start: 09-14-2023 End: 09-14-2024 TSH W/REFLEX TO FT4 TSH W/REFLEX TO FT4 Lab Routine Routine general medical examination at a health care facility Expected: 09/14/2023 (Approximate), Expires: 09/14/2024 [facility] Comment on above: Expected: 09/14/2023 (Approximate), Expi res: 09/14/2024 Start: 09-14-2023 End: 09-14-2024 Urate [Mass/volume] in Serum or Plasma Uric acid Lab Routine Routine general medical examination at a health care facility Chronic gout without tophus, unspecified cause, unspecified site Expected: 09/14/2023 (Approximate), Expires: 09/14/2024 [facility] Comment on above: Expected: 09/14/2023 (Approximate), Expi res: 09/14/2024 Start: 04-03-2023 Influenza vaccination Influenza Vaccine (#1) [facility] Start: 1970 Screening for malignant neoplasm of colon [facility] CBC W Auto Differential panel - Blood CBC and differential Lab Routine Routine general medical examination at a health care facility Benign essential hypertension (CMS/HCC) Steatosis of liver Ordered: 09/14/2023 [facility] Comment on above: Ordered: 09/14/2023 Noninvasive colorect al cancer DNA and occult blood screening [Presence] in Stool Cologuard colon cancer screening Lab Routine Encounter for screening for malignant neoplasm of colon Ordered: 09/14/2023 [facility] Work Phone: Comment on above: Ordered: 09/14/2023 Prostate specific Ag [Mass/volume] in Serum or Plasma PSA Lab Routine Routine general medical examination at a health care facility Prostate cancer screening Ordered: 09/14/2023 [facility] Comment on above: Ordered: 09/14/2023 Payers Date Payer Category Payer Private Health Insurance [facility] [id number] 2021-Present [address] [address] [place] [address] [id number] 2021 Private Health Insurance [id number] 1970 Unknown [id number] 1969 Unknown [id number] 1969 Unknown [id number] 1969 Unknown [id number] 1969 Unknown [id number] 1969 Unknown [id number] 1959 Private Health Insurance [id number] Social History Date Type Detail Facility Tobacco smoking stat [facility] Tobacco smoking consumption unknown [facility] Start: 1970 Sex Assigned At Not on file [facility] Start: 09-14-2023 Gender identity Not on file [facility] Start: 09-14-2023 Tobacco smoking stat [facility] Never smoked tobacco [facility] Start: 09-14-2023 Tobacco use and exposure Smokeless t obacco non-user [facility] Start: 09-14-2023 History of Social function [facility] History of Present illness Narrative 09-14-2023 Peterson Crook MD - 09/14/2023 9:30 AM EST Note Date & Type Note Facility 09-14-2023 History of Presen t illness Narrative Subjective Patient ID: Elisha Gifford is a 53 y.o. male who presents for Annual Exam. Pt here for wellness exam He is fasting in case labs need to be done today He had viagra in past and would like to discuss restarting Current Outpatient Medications on File Prior to Visit Medication Sig Dispense Refill amLODIPine-olmesartan (Marily) 10-40 MG tablet Take 1 tablet by mouth in the morning. 90 tablet 3 buPROPion XL (Wellbutrin XL) 300 MG 24 hr tablet Take 1 tablet (300 mg) by mouth in the morning. 90 tablet 2 FLUoxetine (PROzac) 10 MG capsule Take 1 capsule (10 mg) by mouth in the morning. 90 capsule 3 ibuprofen 800 MG tablet TAKE 1 TABLET BY MOUTH 3 TIMES A DAY NEEDED FOR MODERATE PAIN 90 tablet 3 Syringe/Needle, Disp, (B-D 3CC LUER-CARMEN SYR 22GX1 ) 22G X 1 3 ML misc Inject subcutaneous every 14 days. 2 each 5 testosterone cypionate (Depo-Testosterone) 200 MG/ML injection INJECT 1/2 ML INTRAMUSCULARLY EVERY 2 WEEKS 1 mL 2 No current facility-administered medications on file prior to visit. Allergies Allergen Reactions Lisinopril Cough Penicillin G Unknown Vancomycin Unknown Social History Tobacco Use Smoking status: Never Smokeless tobacco: Never No family history on file. Past Medical History: Diagnosis Date Allergic Depression (CMS/HCC) GERD (gastroesophageal reflux disease) Gout Hypertension (CMS/HCC) Past Surgical History: Procedure Laterality Date COLONOSCOPY W/ POLYPECTOMY 2013 Visit Vitals BP 126/80 Pulse 87 Ht 5' 8 Wt 239 lb SpO2 95% BMI 36.34 kg/m Smoking Status Never BSA 2.28 m Review of Systems Constitutional: Negative for appetite change, fatigue and unexpected weight change. Respiratory: Negative for cough, chest tightness and shortness of breath. Cardiovascular: Negative for chest pain, palpitations and leg swelling. Gastrointestinal: Negative for abdominal pain, nausea and vomiting. Genitourinary: Negative for difficulty urinating, hematuria and urgency. Objective Physical Exam Constitutional: General: He is not in acute distress. Appearance: He is normal weight. He is not ill-appearing. HENT: Head: Normocephalic. Cardiovascular: Rate and Rhythm: Normal rate and regular rhythm. Heart sounds: Normal heart sounds. No murmur heard. Pulmonary: Effort: Pulmonary effort is normal. Breath sounds: Normal breath sounds. Musculoskeletal: General: No swelling. Right lower leg: No edema. Left lower leg: No edema. Neurological: Mental Status: He is alert. Psychiatric: Mood and Affect: Mood normal. Thought Content: Thought content normal. Judgment: Judgment normal. Assessment/Plan Diagnoses and all orders for this visit: Routine general medical examination at a health care facility - CBC and differential - Comprehensive metabolic panel; Future - Hemoglobin A1c; Future - Lipid panel; Future - TSH W/REFLEX TO FT4; Future - PSA - Testosterone; Future - Uric acid; Future Encounter for screening for malignant neoplasm of colon - Cologuard colon cancer screening Benign essential hypertension (CMS/HCC) - CBC and differential - Comprehensive metabolic panel; Future Gastroesophageal reflux disease without esophagitis Steatosis of liver - CBC and differential - Comprehensive metabolic panel; Future Benign prostatic hyperplasia with nocturia - tadalafil (Cialis) 5 MG tablet; Take 1 tablet (5 mg) by mouth in the morning. Spondylosis of cervical region without myelopathy or radiculopathy IGT (impaired glucose tolerance) - Hemoglobin A1c; Future Testicular hypofunction - Testosterone; Future Chronic gout without tophus, unspecified cause, unspecified site - Uric acid; Future Hyperchylomicronemia (CMS/HCC) - Lipid panel; Future Low testosterone - Testosterone; Future Prostate cancer screening - PSA Follow up in about 2 weeks (around 09/28/2023) for Test/Lab Review, F/U med changes. documented in this encounter [facility] Evaluation note Note Date & Type Note Facility Evaluation note Diagnosis Routine general medical examination at a health care facility- Primary Encounter for screening for malignant neoplasm of colon Benign essential hypertension (CMS/HCC) Essential hypertension, benign Gastroesophageal reflux disease without esophagitis Esophageal reflux Steatosis of liver Other chronic nonalcoholic liver disease Benign prostatic hyperplasia with nocturia Spondylosis of cervical region without myelopathy or radiculopathy IGT (impaired glucose tolerance) Impaired glucose tolerance test Testicular hypofunction Other testicular hypofunction Chronic gout without tophus, unspecified cause, unspecified site Hyperchylomicronemia (CMS/HCC) Hyperchylomicronemia Low testosterone Prostate cancer screening Special screening for malignant neoplasm of prostate documented in this encounter [facility] Summary Purpose Family History No Family History Records FoundNo Family History Records FoundNo Family History Records FoundNo Family History Records Found Advance Directives No Advanced Directives Records FoundNo Advanced Directives Records FoundNo Advanced Directives Records FoundNo Advanced Directives Records Found Additional Source Comments (unrecognized sect ion and content) No Status Records FoundNo Status Records FoundNo Status Records FoundNo Status Records Found INFORMATION SOURCE (unrecogn ized section and content) DATE CREATED AUTHOR 06/08/2020 [facility] DATE CREATED AUTHOR AUTHOR'S ORGANIZ ATION 12/09/2020 [facility] DATE CREATED AUTHOR AUTHOR'S ORGANIZ ATION 07/14/[address] [facility] dical Specialist DATE CREATED AUTHOR AUTHOR'S ORGANIZ ATION 04/27/[address] [facility] dical Specialists [facility] Care Teams (unrecognized sec tion and content) Business Development Representative Relationship Specialty Start Date End Date Peterson Crook MD [address] [facility] [address] [place] [address] PCP - General Internal Medicine 01/01/23 Business Development Representative Relationship Specialty Start Date End Date Peterson Crook MD [address] [facility] [address] [place] [address] PCP - General Internal Medicine 01/01/23 Reason for Visit (unrecogniz ed section and content) Reason Comments Annual Exam FOR RECORDS PERTAINING TO PATIENTS WHO ARE OR HAVE BEEN ENROLLED IN A CHEMICAL DEPENDENCY/SUBSTANCEABUSE PROGRAM, SOME INFORMATION MAY BE OMITTED. This clinical summary was aggregated from multiple sources. Caution should be exercised in using it in the provision of clinical care. This summary normalizes information from multiple sources, and as a consequence, information in this document may materially change the coding, format and clinical context of patient data. In addition, data may be omitted in some cases. CLINICAL DECISIONS SHOULD BE BASED ON THE PRIMARY CLINICAL RECORDS. [employer] provides no warranty or guarantee of the accuracy or completeness of information in this document.
== END 2024-05-09 09:23 | disposition home or self-care (01) ==
LOC: CARD 09:23
PROVIDERS: PCP Internal Medicine; Visit Provider Physician Assistant
DX: R60.0 Localized edema (principal); E11.69 Type 2 diabetes mellitus with other specified complication; I10 Essential (primary) hypertension; R06.09 Other forms of dyspnea
CPT/HCPCS: 93306